=== PATIENT | male | born 1970 | race Two or more races ===

== ENCOUNTER 2022-09-01 12:59 | Inpatient (IN) | payer SELFPAY ==
[2022-09-01 13:49] LABS: #Basophils 0.1 thou/uL (0.0-0.2); #Eosinphils 0.1 thou/uL (0.0-0.7); #Lymphocytes 3.6 thou/uL (1.20-3.40); #Monocytes 0.8 thou/uL (0.11-0.59); #Neutrophils 7.3 thou/uL (1.40-6.50); %Eosinophils 0.5 % (0.0-10.0); %Lymphocytes 30.5 % (21.0-51.0); %Monocytes 6.8 % (0.0-10.0); %Neutrophils 61.2 % (42.0-75.0); Hemoglobin 16.9 g/dL (14.0-18.0); Mean Corpuscular HGB CONC 31.9 g/dL (32.0-36.0); Mean Corpuscular Hemoglobin 28.9 pg (27.0-31.0); Mean Corpuscular Volume 90.6 fl (78.0-98.0); Mean Platelet Volume 10.1 fL (7.4-10.4); Platelet Count 226 10x3/uL (130-400); RBC Distribution Width 13.1 % (11.5-14.5); Red Blood Cell (RBC) Count 5.86 mill/uL (4.70-6.10); White Blood Cell (WBC) Count 11.9 10x3/uL (4.8-10.8)
[2022-09-01] MEDS ORDERED: Aspirin Chewable 81 MG TAB ONE (13:51)
[2022-09-01] MEDS ORDERED: Nitroglycerin 2% Ointment 1 INCH/1 GM Packet ONE (13:51)
[2022-09-01 14:08] LABS: ALT (SGPT) 20 U/L (8-55); AST (SGOT) 22 U/L (5-34); Albumin 4.6 g/dL (3.5-5.0); Alkaline Phosphatase 47 U/L (40-110); Anion Gap 13 mmol/L (10-20); BUN (Urea Nitrogen) 11 mg/dL (8.4-25.7); Bilirubin, Total 0.8 mg/dL (0.2-1.2); CK (CPK) 144 U/L (30-200); Calc. Creatinine Clearance 0 mL/min (70-130); Carbon Dioxide 25 mmol/L (22-29); Chloride 106 mmol/L (98-107); Estimated GFR 95; Glucose 110 mg/dL (70-105); Lipase 19 U/L (8-78); Potassium 3.9 mmol/L (3.5-5.1); Protein, Total 8.6 g/dL (6.0-8.3); Sodium 140 mmol/L (136-145)
[2022-09-01] MEDS ORDERED: Enoxaparin Sodium 100 MG/ML SYRINGE ONE (14:25)
[2022-09-01 14:38] LABS: CKMB 3.9 ng/mL (0-6.6)
[2022-09-01] MEDS ORDERED: Acetaminophen 325 MG TAB PO PRN (15:44)
[2022-09-01] MEDS ORDERED: Ondansetron ODT 4 MG TAB PO PRN (15:44)
[2022-09-01] MEDS ORDERED: Nitroglycerin 0.4 MG TAB (25 Tab Bottle) SL PRN (15:50)
[2022-09-01 16:41] VITALS: BMI 30.8
[2022-09-01 18:09] LABS: SARS-CoV-2 NAA Rapid Test Not Detected (NotDetected)
[2022-09-01] MEDS: Atorvastatin Calcium 20 MG TAB PO SCH (20:27)
[2022-09-01] MEDS: Enoxaparin Sodium 100 MG/ML SYRINGE SC SCH (20:27)
[2022-09-01 20:48] LABS: CKMB 4.6 ng/mL (0-6.6)
[2022-09-01] MEDS ORDERED: Atorvastatin Calcium 40 MG TAB PO SCH (21:00)
[2022-09-01] MEDS: Nitroglycerin 2% Ointment 1 INCH/1 GM Packet TOP SCH (21:55)
[2022-09-01] MEDS ORDERED: traZODone HCl 50 MG TAB PO SCH (23:45)
[2022-09-02] MEDS ORDERED: Zolpidem Tartrate 5 MG TAB PO SCH (02:30)
[2022-09-02] MEDS: Nitroglycerin 2% Ointment 1 INCH/1 GM Packet TOP SCH ×4 (03:53→21:21)
[2022-09-02 05:55] LABS: #Basophils 0.1 thou/uL (0.0-0.2); #Eosinphils 0.2 thou/uL (0.0-0.7); #Lymphocytes 3.8 thou/uL (1.20-3.40); #Monocytes 0.7 thou/uL (0.11-0.59); #Neutrophils 6.7 thou/uL (1.40-6.50); %Basophils 0.5 % (0.0-1.0); %Eosinophils 1.3 % (0.0-10.0); %Monocytes 6.4 % (0.0-10.0); %Neutrophils 58.7 % (42.0-75.0); Hemoglobin 15.9 g/dL (14.0-18.0); Mean Corpuscular HGB CONC 33.8 g/dL (32.0-36.0); Mean Corpuscular Hemoglobin 30.4 pg (27.0-31.0); Mean Corpuscular Volume 89.9 fl (78.0-98.0); Platelet Count 198 10x3/uL (130-400); RBC Distribution Width 12.8 % (11.5-14.5); Red Blood Cell (RBC) Count 5.25 mill/uL (4.70-6.10); White Blood Cell (WBC) Count 11.5 10x3/uL (4.8-10.8)
[2022-09-02 06:03] LABS: Hemoglobin A1c 5.3 % (4.0-6.0)
[2022-09-02 06:22] LABS: Anion Gap 13 mmol/L (10-20); BUN (Urea Nitrogen) 11 mg/dL (8.4-25.7); Calc. Creatinine Clearance 144 mL/min (70-130); Carbon Dioxide 22 mmol/L (22-29); Cardiac Risk 8.7 (Less than 4.5); Chloride 107 mmol/L (98-107); Cholesterol 252 mg/dl (< 200 Desired); Estimated GFR 106; Glucose 90 mg/dL (70-105); HDL Cholesterol 29 mg/dL (>60 Neg Risk); LDL Cholesterol, Calculated 197 mg/dL; Magnesium 2.1 mg/dL (1.6-2.6); Potassium 3.8 mmol/L (3.5-5.1); Sodium 138 mmol/L (136-145); Triglycerides 131 mg/dL (Less than 150)
[2022-09-02] MEDS: Aspirin Chewable 81 MG TAB PO SCH (09:22)
[2022-09-02] MEDS ORDERED: Communication Order-Pharmacy FS SCH (11:30)
[2022-09-02] MEDS: Enoxaparin Sodium 100 MG/ML SYRINGE SC SCH ×2 (12:15→20:26)
[2022-09-02 12:19] LABS: Troponin I 0.406 ng/mL (< 0.028)
[2022-09-02] MEDS: Lorazepam 0.5 MG TAB PO PRN ×2 (14:42→21:22)
[2022-09-02] MEDS: Atorvastatin Calcium 20 MG TAB PO SCH (20:26)
[2022-09-03 05:19] LABS: #Basophils 0.1 thou/uL (0.0-0.2); #Eosinphils 0.2 thou/uL (0.0-0.7); #Lymphocytes 3.6 thou/uL (1.20-3.40); #Monocytes 0.7 thou/uL (0.11-0.59); #Neutrophils 4.5 thou/uL (1.40-6.50); %Basophils 0.8 % (0.0-1.0); %Eosinophils 2.1 % (0.0-10.0); %Lymphocytes 39.7 % (21.0-51.0); %Monocytes 7.3 % (0.0-10.0); %Neutrophils 50.2 % (42.0-75.0); Hemoglobin 15.7 g/dL (14.0-18.0); Mean Corpuscular HGB CONC 33.1 g/dL (32.0-36.0); Mean Corpuscular Hemoglobin 29.6 pg (27.0-31.0); Mean Corpuscular Volume 89.5 fl (78.0-98.0); Mean Platelet Volume 10.2 fL (7.4-10.4); Platelet Count 198 10x3/uL (130-400)
[2022-09-03 05:41] LABS: Anion Gap 12 mmol/L (10-20); BUN (Urea Nitrogen) 13 mg/dL (8.4-25.7); Calc. Creatinine Clearance 123 mL/min (70-130); Calcium 9.2 mg/dL (7.8-10.44); Carbon Dioxide 24 mmol/L (22-29); Chloride 106 mmol/L (98-107); Estimated GFR 93; Glucose 90 mg/dL (70-105); Potassium 3.8 mmol/L (3.5-5.1); Sodium 138 mmol/L (136-145)
[2022-09-03] MEDS: Nitroglycerin 2% Ointment 1 INCH/1 GM Packet TOP SCH ×3 (06:31→20:44)
[2022-09-03] MEDS: Aspirin Chewable 81 MG TAB PO SCH (06:31)
[2022-09-03] MEDS ORDERED: Fentanyl 100 MCG/2 ML VIAL ONE (07:39)
[2022-09-03] MEDS ORDERED: Midazolam HCl 2 mg/2 ml Vial ONE (07:39)
[2022-09-03] MEDS ORDERED: Nitroglycerin 100MG/250ML BOT 250 ML ONE (07:40)
[2022-09-03] MEDS ORDERED: Lidocaine 1% (PF) 30 ML VIAL ONE (07:40)
[2022-09-03] MEDS ORDERED: Heparin 10,000 UNITS/ 10 ML VIAL ONE (07:40)
[2022-09-03] MEDS ORDERED: Adenosine 6 MG/2 ML VIAL ONE (07:40)
[2022-09-03] MEDS ORDERED: Verapamil 5 MG/2 ML VIAL ONE (09:08)
[2022-09-03] MEDS ORDERED: Iopamidol 370 76% 100 ML VIAL ONE (09:12)
[2022-09-03] MEDS ORDERED: Acetaminophen/Codeine 30-300mg Tablet PO PRN ×2 (09:41)
[2022-09-03] MEDS ORDERED: Nitroglycerin 0.4 MG TAB (25 Tab Bottle) SL PRN (09:41)
[2022-09-03] MEDS ORDERED: Sodium Chloride 0.9% 250 ML 200 ML IV PRN (09:44)
[2022-09-03] MEDS ORDERED: Communication Order-Pharmacy FS ONE (16:42)
[2022-09-03] MEDS: Carvedilol 3.125 MG TAB PO SCH (17:18)
[2022-09-03 17:33] LABS: Hemoglobin 16.2 g/dL (14.0-18.0); Platelet Count 225 10x3/uL (130-400)
[2022-09-03 19:20] LABS: PTT 29.5 sec (22.9-36.1)
[2022-09-03] MEDS: Heparin 10,000 UNITS/ 10 ML VIAL SLOW IVP SCH (20:31)
[2022-09-03] MEDS: Heparin 25,000 units/D5W 500 ML IVPB SCH (20:33)
[2022-09-03] MEDS: Atorvastatin Calcium 40 MG TAB PO SCH (20:45)
[2022-09-03] MEDS: Lorazepam 0.5 MG TAB PO PRN (20:45)
[2022-09-04] MEDS: Heparin 10,000 UNITS/ 10 ML VIAL SLOW IVP SCH ×3 (03:13→18:43)
[2022-09-04] MEDS: Nitroglycerin 2% Ointment 1 INCH/1 GM Packet TOP SCH ×3 (06:45→21:36)
[2022-09-04] MEDS: Aspirin Chewable 81 MG TAB PO SCH (08:34)
[2022-09-04] MEDS: Carvedilol 3.125 MG TAB PO SCH ×2 (08:34→17:23)
[2022-09-04 09:51] LABS: Anion Gap 15 mmol/L (10-20); BUN (Urea Nitrogen) 12 mg/dL (8.4-25.7); Calc. Creatinine Clearance 135 mL/min (70-130); Calcium 9.4 mg/dL (7.8-10.44); Carbon Dioxide 21 mmol/L (22-29); Chloride 106 mmol/L (98-107); Estimated GFR 104; Glucose 109 mg/dL (70-105); Potassium 3.6 mmol/L (3.5-5.1); Sodium 138 mmol/L (136-145)
[2022-09-04] MEDS: Heparin 25,000 units/D5W 500 ML IVPB SCH (17:24)
[2022-09-04] MEDS: Atorvastatin Calcium 40 MG TAB PO SCH (20:11)
[2022-09-04] MEDS: Lorazepam 0.5 MG TAB PO PRN (23:56)
[2022-09-05 04:50] LABS: #Basophils 0.1 thou/uL (0.0-0.2); #Eosinphils 0.2 thou/uL (0.0-0.7); #Lymphocytes 4.5 thou/uL (1.20-3.40); #Monocytes 0.7 thou/uL (0.11-0.59); #Neutrophils 4.9 thou/uL (1.40-6.50); %Basophils 0.6 % (0.0-1.0); %Lymphocytes 43.2 % (21.0-51.0); %Monocytes 6.8 % (0.0-10.0); %Neutrophils 47.4 % (42.0-75.0); Hemoglobin 16.1 g/dL (14.0-18.0); Mean Corpuscular HGB CONC 32.8 g/dL (32.0-36.0); Mean Corpuscular Hemoglobin 29.7 pg (27.0-31.0); Mean Corpuscular Volume 90.5 fl (78.0-98.0); Platelet Count 200 10x3/uL (130-400); RBC Distribution Width 12.7 % (11.5-14.5); Red Blood Cell (RBC) Count 5.42 mill/uL (4.70-6.10); White Blood Cell (WBC) Count 10.3 10x3/uL (4.8-10.8)
[2022-09-05 05:51] LABS: Anion Gap 15 mmol/L (10-20); BUN (Urea Nitrogen) 11 mg/dL (8.4-25.7); Calc. Creatinine Clearance 121 mL/min (70-130); Calcium 9.6 mg/dL (7.8-10.44); Carbon Dioxide 23 mmol/L (22-29); Chloride 105 mmol/L (98-107); Estimated GFR 91; Glucose 90 mg/dL (70-105); Potassium 3.6 mmol/L (3.5-5.1); Sodium 139 mmol/L (136-145)
[2022-09-05] MEDS: Nitroglycerin 2% Ointment 1 INCH/1 GM Packet TOP SCH (06:09)
[2022-09-05] MEDS: Carvedilol 3.125 MG TAB PO SCH (06:09)
[2022-09-05] MEDS ORDERED: Albumin 5% 0 ML ONE ×2 (06:18→14:10)
[2022-09-05] MEDS ORDERED: fentaNYL PF 100 MCG/2 ML SYRINGE ONE ×2 (09:27→12:46)
[2022-09-05] MEDS ORDERED: niCARdipine 25 MG/10 ML VIAL ONE (09:28)
[2022-09-05] MEDS ORDERED: Rocuronium Bromide 50 MG/5 ML VIAL ONE (09:28)
[2022-09-05] MEDS ORDERED: Insulin Regular 300 UNITS/3 ML VIAL ONE (09:28)
[2022-09-05] MEDS ORDERED: PHENYLEPHRINE-NS 100 MCG/ML 10 ML SYRINGE ONE (09:28)
[2022-09-05] MEDS ORDERED: Midazolam HCl 5 mg/5 ml Vial ONE (09:28)
[2022-09-05] MEDS ORDERED: Heparin 10,000 UNITS/1 ML VIAL 30,000 UNITS in Sodium Chloride 0.9% 1,000 ML FS SCH (09:30)
[2022-09-05] MEDS ORDERED: Heparin 30,000 units/30 ml VIAL ONE (10:38)
[2022-09-05] MEDS ORDERED: Propofol 1,000 MG/100 ML VIAL IV ONE (10:38)
[2022-09-05] MEDS ORDERED: Norepinephrine 4 MG/4 ML VIAL ONE (10:38)
[2022-09-05] MEDS ORDERED: Calcium Chloride 1 GM/10 ML Abboject SYRINGE ONE (10:38)
[2022-09-05] MEDS ORDERED: Aminocaproic Acid 5 GM/20 ML VIAL ONE (10:38)
[2022-09-05] MEDS ORDERED: Thrombin 5000 UNITS/5 ML VIAL ONE (10:38)
[2022-09-05] MEDS ORDERED: Protamine Sulfate 250 MG/25 ML VIAL ONE (10:38)
[2022-09-05] MEDS ORDERED: Rocuronium Bromide 10 MG/ML (10ML VIAL) ONE (10:38)
[2022-09-05] MEDS ORDERED: Papaverine 60 MG/2 ML VIAL ONE (10:38)
[2022-09-05] MEDS ORDERED: Cardioplegic Soln 1,000 ML BAG ONE (10:38)
[2022-09-05] MEDS ORDERED: Sodium Bicarb 50 MEQ/50 ML Abboject 8.4% SYRINGE ONE (10:38)
[2022-09-05] MEDS ORDERED: Heparin 5,000 UNITS/ML VIAL ONE (10:38)
[2022-09-05] MEDS ORDERED: FENTANYL 50 MCG/ML 1 ML VIAL SLOW IVP PRN (15:35)
[2022-09-05] MEDS ORDERED: Acetaminophen 325 MG TAB PO PRN (15:35)
[2022-09-05] MEDS ORDERED: Hetastarch 6% 500 ML 500 ML IVPB PRN (15:35)
[2022-09-05] MEDS ORDERED: Morphine 4 MG/ML VIAL SLOW IVP PRN (15:35)
[2022-09-05] MEDS ORDERED: Ondansetron PF 4 MG/2 ML Vial IVP PRN (15:35)
[2022-09-05] MEDS ORDERED: niCARdipine 25 MG in Sodium Chloride 0.9% 250 ML 250 ML IVPB PRN (15:35)
[2022-09-05] MEDS ORDERED: Magnesium Sulfate 5 GM in Sodium Chloride 0.9% 1,000 ML IV SCH (15:35)
[2022-09-05] MEDS ORDERED: Bisacodyl 10 MG SUPP PR PRN (15:35)
[2022-09-05] MEDS ORDERED: Mag-Al 1200 mg/1200 mg/30 ML UDCUP PO PRN (15:35)
[2022-09-05] MEDS ORDERED: Guaifenesin DM 100-10/5 ML UDCUP PO PRN (15:35)
[2022-09-05] MEDS ORDERED: Nitroglycerin 50 MG/250 ML BOT 250 ML IVPB PRN (15:35)
[2022-09-05] MEDS ORDERED: NOREPINEPHRINE 8 MG/250 ML-D5W 250 ML IVPB PRN (15:35)
[2022-09-05] MEDS ORDERED: hydrALAZINE 20 MG/ML VIAL SLOW IVP PRN (15:35)
[2022-09-05] MEDS ORDERED: DOPamine 400 MG/D5W 250 ML 250 ML IVPB PRN (15:35)
[2022-09-05] MEDS ORDERED: Post-Op Insulin Drip Protocol IVPB ONE (15:35)
[2022-09-05] MEDS ORDERED: Bisacodyl 5 MG TAB PO PRN (15:35)
[2022-09-05] MEDS ORDERED: Dextrose 50% Abboject 50 ML SYRINGE SLOW IVP PRN (15:45)
[2022-09-05] MEDS ORDERED: Dextrose 5% in Water 1,000 ML IV PRN (15:45)
[2022-09-05] MEDS ORDERED: HUMULIN R 100 UNITS in Sodium Chloride 0.9% 100 ML IVPB SCH (15:45)
[2022-09-05 15:54] LABS: Actual Bicarbonate (HCO3a) 19.4 mEq/L (22-28); Base Excess (BEa) -5.3 mEq/L (-2.0 to +3.0); CO2 Tension 35.5 mmHg (35.0-45.0); Calcium, Ionized (arterial) 1.13 mmol/L (1.12-1.30); Carboxyhemoglobin (COHb) 0.5 gm% (0.0-3.0); Hemoglobin (Hb) 14.7 g/dL (14.0-18.0); O2 Tension (PaO2), arterial 104.5 mmHg (80.0-100.0); Potassium - ABG Lab 4.19 mmol/L (3.70-5.30); pH, Arterial 7.36 (7.35-7.45)
[2022-09-05 16:01] LABS: ALV-art Gradient 278.925 mmHg (0-20); Puncture Site Arterial Line
[2022-09-05 16:11] LABS: Mean Corpuscular HGB CONC 33.2 g/dL (32.0-36.0); Mean Corpuscular Hemoglobin 30.2 pg (27.0-31.0); Mean Platelet Volume 10.5 fL (7.4-10.4); Platelet Count 198 10x3/uL (130-400); RBC Distribution Width 12.9 % (11.5-14.5); Red Blood Cell (RBC) Count 4.62 mill/uL (4.70-6.10); White Blood Cell (WBC) Count 27.3 10x3/uL (4.8-10.8)
[2022-09-05] MEDS: Lactated Ringer's 1,000 ML IV SCH (16:17)
[2022-09-05 16:18] LABS: INR-International Normal Ratio 1.2; PTT 34.4 sec (22.9-36.1); Prothrombin Time 15.4 sec (12.0-14.7)
[2022-09-05 16:26] LABS: Band 13 % (5-11); Eosinophils 1 % (0-10); Lymphocytes 13 % (21-51); MDiff Complete? YES; Monocytes 8 % (0-10); Neutrophil 63 % (42-75); Platelet Morphology Comment Appears Adequate; RBC Morphology Normal; Reactive Lymphocytes 2 % (0-10)
[2022-09-05] MEDS: FENTANYL 50 MCG/ML 1 ML VIAL SLOW IVP PRN ×4 (16:26→22:12)
[2022-09-05 16:32] LABS: Anion Gap 12 mmol/L (10-20); BUN (Urea Nitrogen) 9 mg/dL (8.4-25.7); Calc. Creatinine Clearance 151 mL/min (70-130); Calcium 7.7 mg/dL (7.8-10.44); Carbon Dioxide 19 mmol/L (22-29); Chloride 113 mmol/L (98-107); Estimated GFR 107; Glucose 149 mg/dL (70-105); Potassium 4.1 mmol/L (3.5-5.1); Sodium 140 mmol/L (136-145)
[2022-09-05 17:15] LABS: Actual Bicarbonate (HCO3a) 15.4 mEq/L (22-28); Base Excess (BEa) -5.4 mEq/L (-2.0 to +3.0); CO2 Tension 20.6 mmHg (35.0-45.0); Calcium, Ionized (arterial) 1.09 mmol/L (1.12-1.30); Carboxyhemoglobin (COHb) 0.5 gm% (0.0-3.0); Hemoglobin (Hb) 14.3 g/dL (14.0-18.0); O2 Tension (PaO2), arterial 157.7 mmHg (80.0-100.0); Puncture Site Arterial Line; pH, Arterial 7.49 (7.35-7.45)
[2022-09-05] MEDS: CEFAZOLIN 2 GM in Sodium Chloride 0.9% 100 ML IVPB SCH (17:45)
[2022-09-05] MEDS: HYDROcodone/Acetaminophen 5/325 mg Tablet PO PRN ×2 (18:03→20:14)
[2022-09-05] MEDS: Famotidine/PF 20 mg/2ml Vial SLOW IVP SCH (20:13)
[2022-09-05] MEDS ORDERED: ALPRAZolam 0.25 MG TAB PO SCH (21:15)
[2022-09-05 21:37] LABS: Hemoglobin 12.4 g/dL (14.0-18.0)
[2022-09-05] MEDS: Insulin Regular 300 UNITS/3 ML VIAL SC PRN (22:11)
[2022-09-06] MEDS: Potassium Chloride 20 MEQ/100 ML PREMIX BAG IVPB PRN (00:04)
[2022-09-06] MEDS: HYDROcodone/Acetaminophen 5/325 mg Tablet PO PRN ×3 (00:05→21:40)
[2022-09-06] MEDS: FENTANYL 50 MCG/ML 1 ML VIAL SLOW IVP PRN ×4 (00:29→08:49)
[2022-09-06] MEDS: Insulin Regular 300 UNITS/3 ML VIAL SC PRN (00:42)
[2022-09-06] MEDS: CEFAZOLIN 2 GM in Sodium Chloride 0.9% 100 ML IVPB SCH ×2 (02:13→08:54)
[2022-09-06 05:12] LABS: #Lymphocytes 2.8 thou/uL (1.20-3.40); #Monocytes 1.4 thou/uL (0.11-0.59); #Neutrophils 10.8 thou/uL (1.40-6.50); %Basophils 0.2 % (0.0-1.0); %Eosinophils 0.2 % (0.0-10.0); %Lymphocytes 18.6 % (21.0-51.0); %Monocytes 9.2 % (0.0-10.0); %Neutrophils 71.8 % (42.0-75.0); Hemoglobin 12.1 g/dL (14.0-18.0); Mean Corpuscular HGB CONC 32.8 g/dL (32.0-36.0); Mean Corpuscular Hemoglobin 30.2 pg (27.0-31.0); Mean Platelet Volume 10.6 fL (7.4-10.4); Platelet Count 169 10x3/uL (130-400); RBC Distribution Width 12.9 % (11.5-14.5); Red Blood Cell (RBC) Count 4.01 mill/uL (4.70-6.10)
[2022-09-06 05:20] LABS: Anion Gap 10 mmol/L (10-20); BUN (Urea Nitrogen) 10 mg/dL (8.4-25.7); Calc. Creatinine Clearance 165 mL/min (70-130); Calcium 7.3 mg/dL (7.8-10.44); Carbon Dioxide 21 mmol/L (22-29); Chloride 111 mmol/L (98-107); Estimated GFR 110; Glucose 122 mg/dL (70-105); Sodium 138 mmol/L (136-145)
[2022-09-06] MEDS: Lactated Ringer's 1,000 ML IV SCH ×2 (05:59→17:55)
[2022-09-06] MEDS: Aspirin 325 MG TAB PO SCH (07:42)
[2022-09-06] MEDS ORDERED: Melatonin 3 MG TAB PO PRN (08:31)
[2022-09-06] MEDS: Famotidine/PF 20 mg/2ml Vial SLOW IVP SCH ×2 (08:49→21:38)
[2022-09-06] MEDS: Polyethylene Glycol 3350 17 GM Packet PO SCH (08:53)
[2022-09-06] MEDS: Ketorolac Tromethamine 30 MG/ML VIAL IVP SCH ×2 (11:22→17:55)
[2022-09-06] MEDS: ALPRAZolam 0.25 MG TAB PO PRN ×2 (11:22→21:42)
[2022-09-06] MEDS ORDERED: Insulin Glargine 30 UNITS/0.3 ML VIAL SC PRN (15:45)
[2022-09-06] MEDS: Atorvastatin Calcium 40 MG TAB PO SCH (21:37)
[2022-09-07] MEDS: Ketorolac Tromethamine 30 MG/ML VIAL IVP SCH ×5 (00:47→23:32)
[2022-09-07 05:00] LABS: #Basophils 0.1 thou/uL (0.0-0.2); #Eosinphils 0.1 thou/uL (0.0-0.7); #Lymphocytes 3.3 thou/uL (1.20-3.40); #Monocytes 1.1 thou/uL (0.11-0.59); #Neutrophils 7.8 thou/uL (1.40-6.50); %Basophils 0.5 % (0.0-1.0); %Eosinophils 1.1 % (0.0-10.0); %Lymphocytes 26.7 % (21.0-51.0); %Neutrophils 62.7 % (42.0-75.0); Hemoglobin 10.2 g/dL (14.0-18.0); Mean Corpuscular HGB CONC 31.2 g/dL (32.0-36.0); Mean Corpuscular Hemoglobin 28.5 pg (27.0-31.0); Mean Corpuscular Volume 91.3 fl (78.0-98.0); Mean Platelet Volume 11.9 fL (7.4-10.4); Platelet Count 130 10x3/uL (130-400); RBC Distribution Width 12.9 % (11.5-14.5); Red Blood Cell (RBC) Count 3.57 mill/uL (4.70-6.10); White Blood Cell (WBC) Count 12.4 10x3/uL (4.8-10.8)
[2022-09-07 05:21] LABS: Anion Gap 8 mmol/L (10-20); BUN (Urea Nitrogen) 9 mg/dL (8.4-25.7); Calc. Creatinine Clearance 176 mL/min (70-130); Calcium 7.8 mg/dL (7.8-10.44); Carbon Dioxide 25 mmol/L (22-29); Chloride 107 mmol/L (98-107); Estimated GFR 112; Glucose 112 mg/dL (70-105); Potassium 3.9 mmol/L (3.5-5.1); Sodium 136 mmol/L (136-145)
[2022-09-07] MEDS: Potassium Chloride 20 MEQ/100 ML PREMIX BAG IVPB PRN (06:39)
[2022-09-07] MEDS: Aspirin 325 MG TAB PO SCH (07:43)
[2022-09-07] MEDS: HYDROcodone/Acetaminophen 5/325 mg Tablet PO PRN ×3 (07:47→20:51)
[2022-09-07] MEDS: Polyethylene Glycol 3350 17 GM Packet PO SCH (07:48)
[2022-09-07] MEDS: Famotidine/PF 20 mg/2ml Vial SLOW IVP SCH (07:48)
[2022-09-07] MEDS ORDERED: Docusate 100 MG CAP PO SCH (11:15)
[2022-09-07] MEDS: Docusate 100 MG CAP PO SCH (11:46)
[2022-09-07 13:20] LABS: #Eosinphils 0.1 thou/uL (0.0-0.7); #Lymphocytes 2.8 thou/uL (1.20-3.40); #Monocytes 0.8 thou/uL (0.11-0.59); #Neutrophils 8.7 thou/uL (1.40-6.50); %Basophils 0.2 % (0.0-1.0); %Eosinophils 0.7 % (0.0-10.0); %Lymphocytes 22.5 % (21.0-51.0); %Monocytes 6.7 % (0.0-10.0); Hemoglobin 10.5 g/dL (14.0-18.0); Mean Corpuscular Hemoglobin 29.4 pg (27.0-31.0); Mean Platelet Volume 10.9 fL (7.4-10.4); Platelet Count 147 10x3/uL (130-400); RBC Distribution Width 12.8 % (11.5-14.5); Red Blood Cell (RBC) Count 3.57 mill/uL (4.70-6.10); White Blood Cell (WBC) Count 12.4 10x3/uL (4.8-10.8)
[2022-09-07] MEDS ORDERED: Nitroglycerin 0.4 MG TAB (25 Tab Bottle) SL PRN (15:49)
[2022-09-07] MEDS: Atorvastatin Calcium 40 MG TAB PO SCH (20:50)
[2022-09-07] MEDS: ALPRAZolam 0.25 MG TAB PO PRN (20:50)
[2022-09-07] MEDS: Famotidine 20 MG TAB PO SCH (20:50)
[2022-09-07] MEDS: Zolpidem Tartrate 5 MG TAB PO PRN (20:51)
[2022-09-08] MEDS: Ketorolac Tromethamine 30 MG/ML VIAL IVP SCH ×4 (05:24→23:13)
[2022-09-08] MEDS: Famotidine 20 MG TAB PO SCH ×2 (09:53→20:56)
[2022-09-08] MEDS: Aspirin 325 MG TAB PO SCH (09:53)
[2022-09-08] MEDS: Docusate 100 MG CAP PO SCH ×2 (09:53→20:57)
[2022-09-08] MEDS: Polyethylene Glycol 3350 17 GM Packet PO SCH (09:53)
[2022-09-08 18:07] LABS: Bacteria/HPF None Seen HPF (None Seen); Bilirubin Negative (Negative); Blood, Urine Negative (Negative); CAUTI Indications for Culture Fever or rigors; Clarity Clear (Clear); Glucose, Urine (Dipstick) Normal (Negative); Ketone, Urine Negative (Negative); Leukocyte Negative Leu/uL (Negative); Nitrite Negative (Negative); Protein, Urine (Dipstick) 10 mg/dL (Neg-Trace); RBC/HPF 0-3 HPF (0-3); Specific Gravity, Urine 1.017 (1.002-1.036); Squamous Epithelial 0-3 HPF (0-3); WBC/HPF 0-3 HPF (0-3)
[2022-09-08 18:11] LABS: Urine Culture Reflex No No
[2022-09-08 20:15] LABS: #Basophils 0.1 thou/uL (0.0-0.2); #Eosinphils 0.1 thou/uL (0.0-0.7); #Lymphocytes 3.1 thou/uL (1.20-3.40); #Neutrophils 7.5 thou/uL (1.40-6.50); %Basophils 0.5 % (0.0-1.0); %Monocytes 8.8 % (0.0-10.0); %Neutrophils 63.7 % (42.0-75.0); Hemoglobin 9.8 g/dL (14.0-18.0); Mean Corpuscular HGB CONC 32.3 g/dL (32.0-36.0); Mean Corpuscular Hemoglobin 29.3 pg (27.0-31.0); Mean Corpuscular Volume 90.8 fl (78.0-98.0); Mean Platelet Volume 10.8 fL (7.4-10.4); Platelet Count 162 10x3/uL (130-400); RBC Distribution Width 12.7 % (11.5-14.5); Red Blood Cell (RBC) Count 3.36 mill/uL (4.70-6.10); White Blood Cell (WBC) Count 11.8 10x3/uL (4.8-10.8)
[2022-09-08 20:34] LABS: Anion Gap 11 mmol/L (10-20); BUN (Urea Nitrogen) 14 mg/dL (8.4-25.7); Calc. Creatinine Clearance 139 mL/min (70-130); Calcium 8.6 mg/dL (7.8-10.44); Carbon Dioxide 24 mmol/L (22-29); Chloride 106 mmol/L (98-107); Estimated GFR 104; Glucose 122 mg/dL (70-105); Potassium 3.9 mmol/L (3.5-5.1); Sodium 137 mmol/L (136-145)
[2022-09-08] MEDS: ALPRAZolam 0.25 MG TAB PO PRN (20:55)
[2022-09-08] MEDS: Polyvinyl Alcohol 1.4%/Povidone 0.6% Opth Drops EA EYE SCH ×2 (20:55→23:14)
[2022-09-08] MEDS: HYDROcodone/Acetaminophen 5/325 mg Tablet PO PRN (20:56)
[2022-09-08] MEDS: Zolpidem Tartrate 5 MG TAB PO PRN (20:56)
[2022-09-08] MEDS: Atorvastatin Calcium 40 MG TAB PO SCH (20:57)
[2022-09-08] MEDS: Metoprolol Tartrate 25 MG TAB PO SCH (20:57)
[2022-09-09] MEDS: Ketorolac Tromethamine 30 MG/ML VIAL IVP SCH (05:02)
[2022-09-09] MEDS: Polyvinyl Alcohol 1.4%/Povidone 0.6% Opth Drops EA EYE SCH ×3 (05:03→17:16)
[2022-09-09 05:11] LABS: #Basophils 0.1 thou/uL (0.0-0.2); #Eosinphils 0.2 thou/uL (0.0-0.7); #Lymphocytes 3.2 thou/uL (1.20-3.40); #Neutrophils 6.1 thou/uL (1.40-6.50); %Basophils 0.6 % (0.0-1.0); %Eosinophils 1.9 % (0.0-10.0); %Lymphocytes 30.4 % (21.0-51.0); %Monocytes 9.2 % (0.0-10.0); %Neutrophils 57.8 % (42.0-75.0); Mean Corpuscular HGB CONC 32.2 g/dL (32.0-36.0); Mean Corpuscular Hemoglobin 29.9 pg (27.0-31.0); Mean Corpuscular Volume 92.8 fl (78.0-98.0); Mean Platelet Volume 10.9 fL (7.4-10.4); Platelet Count 171 10x3/uL (130-400); Red Blood Cell (RBC) Count 3.34 mill/uL (4.70-6.10); White Blood Cell (WBC) Count 10.6 10x3/uL (4.8-10.8)
[2022-09-09 05:19] LABS: Anion Gap 12 mmol/L (10-20); BUN (Urea Nitrogen) 12 mg/dL (8.4-25.7); Calc. Creatinine Clearance 157 mL/min (70-130); Calcium 8.5 mg/dL (7.8-10.44); Carbon Dioxide 21 mmol/L (22-29); Chloride 109 mmol/L (98-107); Estimated GFR 108; Glucose 88 mg/dL (70-105); Potassium 3.9 mmol/L (3.5-5.1); Sodium 138 mmol/L (136-145)
[2022-09-09] MEDS: Polyethylene Glycol 3350 17 GM Packet PO SCH (08:30)
[2022-09-09] MEDS: Famotidine 20 MG TAB PO SCH ×2 (08:30→20:53)
[2022-09-09] MEDS: Aspirin 325 MG TAB PO SCH (08:30)
[2022-09-09] MEDS: Metoprolol Tartrate 25 MG TAB PO SCH ×2 (08:30→20:53)
[2022-09-09] MEDS: Docusate 100 MG CAP PO SCH ×2 (08:30→20:53)
[2022-09-09] MEDS: Atorvastatin Calcium 40 MG TAB PO SCH (20:53)
[2022-09-09] MEDS: ALPRAZolam 0.25 MG TAB PO PRN (20:53)
[2022-09-09] MEDS: Zolpidem Tartrate 5 MG TAB PO PRN (22:36)
[2022-09-10] MEDS: Polyvinyl Alcohol 1.4%/Povidone 0.6% Opth Drops EA EYE SCH ×3 (00:31→13:38)
[2022-09-10 05:04] LABS: #Basophils 0.1 thou/uL (0.0-0.2); #Eosinphils 0.3 thou/uL (0.0-0.7); #Lymphocytes 3.2 thou/uL (1.20-3.40); #Monocytes 1.1 thou/uL (0.11-0.59); #Neutrophils 5.6 thou/uL (1.40-6.50); %Basophils 0.7 % (0.0-1.0); %Eosinophils 2.9 % (0.0-10.0); %Monocytes 11.1 % (0.0-10.0); %Neutrophils 54.3 % (42.0-75.0); Hemoglobin 9.6 g/dL (14.0-18.0); Mean Corpuscular HGB CONC 32.5 g/dL (32.0-36.0); Mean Corpuscular Hemoglobin 29.4 pg (27.0-31.0); Mean Corpuscular Volume 90.7 fl (78.0-98.0); Mean Platelet Volume 10.6 fL (7.4-10.4); Platelet Count 207 10x3/uL (130-400); RBC Distribution Width 12.9 % (11.5-14.5); Red Blood Cell (RBC) Count 3.27 mill/uL (4.70-6.10); White Blood Cell (WBC) Count 10.3 10x3/uL (4.8-10.8)
[2022-09-10 05:24] LABS: Anion Gap 12 mmol/L (10-20); BUN (Urea Nitrogen) 14 mg/dL (8.4-25.7); Calc. Creatinine Clearance 148 mL/min (70-130); Calcium 8.4 mg/dL (7.8-10.44); Carbon Dioxide 22 mmol/L (22-29); Chloride 108 mmol/L (98-107); Estimated GFR 106; Glucose 96 mg/dL (70-105); Potassium 3.9 mmol/L (3.5-5.1); Sodium 138 mmol/L (136-145)
[2022-09-10] MEDS ORDERED: Clopidogrel Bisulfate 75 MG TAB PO SCH (09:00)
[2022-09-10] MEDS: Aspirin 325 MG TAB PO SCH (09:06)
[2022-09-10] MEDS: Docusate 100 MG CAP PO SCH (09:06)
[2022-09-10] MEDS: Famotidine 20 MG TAB PO SCH (09:06)
[2022-09-10] MEDS: Metoprolol Tartrate 25 MG TAB PO SCH (09:07)
[2022-09-10] MEDS: Polyethylene Glycol 3350 17 GM Packet PO SCH (09:07)
[2022-09-10 16:58] VITALS: BP 115/62; TEMP 98
== END 2022-09-10 16:00 | disposition home or self-care (01) | DRG 233 ==
LOC: ERS 12:59 → INTOOBSV 15:04 → ERHOLD 15:04 → 2SW 18:46 → OBSVTOIN 09-03 09:47 → CCU 09-05 08:59 → 2NO 09-07 15:07
PROVIDERS: ADMIT Internal Medicine; ATTEND Internal Medicine
PROC: 4A023N7 Measurement of Cardiac Sampling and Pressure, Left Heart, Percutaneous Approach (ICD-10-PCS; principal; 2022-09-03)
PROC: B2151ZZ Fluoroscopy of Left Heart using Low Osmolar Contrast (ICD-10-PCS; 2022-09-03)
PROC: B2111ZZ Fluoroscopy of Multiple Coronary Arteries using Low Osmolar Contrast (ICD-10-PCS; 2022-09-03)
PROC: 02100Z9 Bypass Coronary Artery, One Artery from Left Internal Mammary, Open Approach (ICD-10-PCS; 2022-09-05)
PROC: 021309W Bypass Coronary Artery, Four or More Arteries from Aorta with Autologous Venous Tissue, Open Approach (ICD-10-PCS; 2022-09-05)
PROC: 06BQ4ZZ Excision of Left Saphenous Vein, Percutaneous Endoscopic Approach (ICD-10-PCS; 2022-09-05)
PROC: 5A1221Z Performance of Cardiac Output, Continuous (ICD-10-PCS; 2022-09-05)
PROC: 02L70ZK Occlusion of Left Atrial Appendage, Open Approach (ICD-10-PCS; 2022-09-05)
DX: I21.4 Non-ST elevation (NSTEMI) myocardial infarction (principal); J18.9 Pneumonia, unspecified organism; Z20.822 Contact with and (suspected) exposure to COVID-19; G47.00 Insomnia, unspecified; F41.1 Generalized anxiety disorder; I25.10 Atherosclerotic heart disease of native coronary artery without angina pectoris; E78.1 Pure hyperglyceridemia; Y95 Nosocomial condition
CPT/HCPCS: 36415; 36416; 36430; 71045; 80048; 80053; 80061; 81001; 82550; 82553; 82805; 83036; 83690; 83735; 83880; 84484; 85025; 85379; 85610; 85730; 86850; 86900; 86901; 87040; 87811; 93005; 93010; 93306; 93458; 93798; 94002; 94760; 96372; 99152; 99153; C1751; C1769; C1776; C1894; G0378; J0153; J1644; J1650; J1815; J1885; J1956; J2001; J2250; J2405; J2440; J2704; J2720; J3010; J3370; J3475; J3480; J3490; J7050; J7120; P9045; Q9967; S0017; S0028; U0002